=== PATIENT | female | born 1955 | race Two or more races ===

== ENCOUNTER 2018-08-20 05:30 | Day surgery (SDC) | payer OTHER ==
[~2018-08-20 05:30] MED LIST: AMANTADINE100 M1 PO; HYDROCHLOROTHIA25 MG PO; IBRERSARTAN PO; PREVACID30 MG PO; SINGULAIR10 MG PO; VERAPAMIL ER240 MG PO; ZOCOR40 MG PO; [UNRECOGNIZED DRUG - OTHER] PO
== END 2018-08-20 15:50 | disposition home or self-care (01) ==
LOC: CIR.AMB 05:30
DX: S52.202K Unspecified fracture of shaft of left ulna, subsequent encounter for closed fracture with nonunion (principal)
CPT/HCPCS: 25405; 20680; C1776

== ENCOUNTER 2020-05-19 14:20 | Inpatient (IN) | payer OTHER ==
[~2020-05-19] VITALS: Ht 160 cm; Wt 64.0 kg
[2020-05-25] MEDS ORDERED: [UNRECOGNIZED DRUG - OTHER] PO (13:59)
[2020-05-25] MEDS ORDERED: ZANAFLEX4 M1 PO (13:59)
[2020-06-01] MEDS ORDERED: DICLOFENAC SODI75 MG (09:31)
[2020-06-01] MEDS ORDERED: IRBESARTAN150 MG (09:32)
[2020-06-01] MEDS ORDERED: FUROSEMIDE20 MG (09:32)
[2020-06-01] MEDS ORDERED: ISOSORBIDE MONO30 M2 (09:32)
[2020-06-01] MEDS ORDERED: VITAMIN D3250 MCG (09:32)
[2020-06-01] MEDS ORDERED: GABAPENTIN800 M1 (09:33)
[2020-06-01] MEDS ORDERED: SPIRONOLACTONE25 MG (09:33)
[2020-06-01] MEDS ORDERED: PROAIR HFA8.5 GM (09:33)
[2020-06-01] MEDS ORDERED: FLONASE16 GM (09:33)
[2020-06-01] MEDS ORDERED: AYR SALINE50 ML (09:33)
[2020-06-01] MEDS ORDERED: TOPIRAMATE50 MG (09:34)
== END 2020-06-04 18:29 | DRG 467 ==
LOC: EDSTATUS 05-25 09:00 → ADM 05-25 09:00 → O/R 06-01 07:37 → SURG 06-01 07:37 → SURH 06-01 09:00 → EDSTATUS 06-01 09:00 → SURH 06-01 10:15 → SURG 06-01 15:30
PROVIDERS: ADMIT Orthopaedic Surgery; ATTEND Orthopaedic Surgery
PROC: 0SWC0JZ Revision of Synthetic Substitute in Right Knee Joint, Open Approach (ICD-10-PCS; principal; 2020-06-01 10:15)
PROC: 30233N1 Transfusion of Nonautologous Red Blood Cells into Peripheral Vein, Percutaneous Approach (ICD-10-PCS; 2020-06-03)
DX: T84.84XA Pain due to internal orthopedic prosthetic devices, implants and grafts, initial encounter (principal); D62 Acute posthemorrhagic anemia; Z96.651 Presence of right artificial knee joint; I10 Essential (primary) hypertension; G20 Parkinson's disease; Z20.822 Contact with and (suspected) exposure to COVID-19